=== PATIENT | male | born 1995 | race American Indian/Alaskan Native ===

== ENCOUNTER 2017-09-11 11:13 | Outpatient (CLI) | payer OTHER ==
--- NOTE | 2017-09-11 12:02 | XRay Report ---
RIGHT SHOULDER, 3 VIEWS: HISTORY: right shoulder pain. Normal bone mineralization. No acute osseous injury or joint pathology is detected. The soft tissues are unremarkable. IMPRESSION: Right shoulder within normal limits.
--- NOTE | 2017-09-11 12:02 | XRay Report ---
RIGHT CLAVICLE, 2 views: HISTORY: pain The bony architecture is intact without evidence of fracture or dislocation. No significant soft tissue abnormality is seen. IMPRESSION: Normal right clavicle.
== END 2017-09-11 11:14 | disposition home or self-care (01) ==
LOC: SPVIMAG 11:13
DX: M25.511 Pain in right shoulder (principal)